=== PATIENT | male | born 1990 | race Caucasian/White ===

== ENCOUNTER 2017-12-05 11:35 | Emergency (ER) | payer SELFPAY ==
[~2017-12-05] VITALS: Ht 165.1 cm; Wt 105.0 kg
[2017-12-05 11:45] VITALS: BP 153/83
== END 2017-12-05 17:03 | disposition home or self-care (01) ==
LOC: ER 11:35
DX: M25.571 Pain in right ankle and joints of right foot (principal); M79.671 Pain in right foot; Y93.67 Activity, basketball; Y92.39 Other specified sports and athletic area as the place of occurrence of the external cause; R03.0 Elevated blood-pressure reading, without diagnosis of hypertension; E78.00 Pure hypercholesterolemia, unspecified; Z87.828 Personal history of other (healed) physical injury and trauma
CPT/HCPCS: 73610; 73630; 99284